=== PATIENT | male | born 1960 | race Native Hawaiian/Other Pacific Islander ===

== ENCOUNTER 2020-02-02 12:47 | Outpatient (CLI) | payer BC, OTHER ==
[~2020-02-02 12:47] MED LIST: ACET7.5T70 PO; DICL1GEL2 TOP; FURO20TA67 PO; INVOKANA100 MG PO; LEVEMIR FLEXPEN SC; LISI10TA11 PO; METF850T PO; ONGLYZA5 MG PO; PEPCID40 MG PO
== END 2020-02-02 23:06 | disposition home or self-care (01) ==
LOC: LAB 12:47
PROVIDERS: ATTEND Family Medicine
DX: U07.1 COVID-19 (principal); Z20.828 Contact with and (suspected) exposure to other viral communicable diseases
CPT/HCPCS: 87635; G2023; U0003

== ENCOUNTER 2020-02-16 12:29 | Outpatient (CLI) | payer BC, OTHER | END 2020-02-16 20:02 | disposition home or self-care (01) | LOC: LAB 12:29 | DX: Z20.828 Contact with and (suspected) exposure to other viral communicable diseases (principal) | CPT/HCPCS: 87635; G2023; U00003 ==

== ENCOUNTER 2021-02-04 08:00 | Day surgery (SDC) | payer BC ==
[2021-02-04 11:41] LABS: PLATELET COUNT 231 K/uL (142-355)
[2021-02-04 11:48] LABS: POTASSIUM 4.6 mmol/L (3.6-5.2)
== END 2021-02-04 10:00 | disposition home or self-care (01) ==
LOC: OR 08:00
PROVIDERS: ATTEND Internal Medicine Gastroenterology
DX: Z53.8 Procedure and treatment not carried out for other reasons (principal); U07.1 COVID-19; Z01.818 Encounter for other preprocedural examination
CPT/HCPCS: 80053; 85027; 87635; U0003

== ENCOUNTER 2021-04-25 10:13 | Outpatient (CLI) | payer BC ==
[2021-04-25 10:55] LABS: PLATELET COUNT 279 K/uL (142-355)
[2021-04-25 11:17] LABS: PARTIAL THROMBOPLASTIN TIME 24.7 SECONDS (24.5-33.6)
[2021-04-25 11:18] LABS: POTASSIUM 4.6 mmol/L (3.6-5.2); SODIUM 133 mmol/L (136-145)
== END 2021-04-25 19:42 | disposition home or self-care (01) ==
LOC: RESP 10:13 → LAB 10:13 → RESP 19:42
PROVIDERS: ATTEND Family Medicine
DX: R07.9 Chest pain, unspecified (principal); R06.00 Dyspnea, unspecified; I10 Essential (primary) hypertension; E11.65 Type 2 diabetes mellitus with hyperglycemia
CPT/HCPCS: 36415; 80053; 82550; 83735; 83880; 84443; 84484; 85027; 85610; 85730; 93005